=== PATIENT | male | born 1995 | race Caucasian/White ===

== ENCOUNTER 2023-11-29 19:35 | Emergency (ER) | payer MEDICAID, OTHER ==
[~2023-11-29] VITALS: Ht 177.8 cm; Wt 81.0 kg
[2023-11-29 19:42] VITALS: O2SAT 100
[2023-11-29 20:20] LABS: BASOPHILS % 0.7 % (0.0-2.0); EOSINOPHILS % 0.6 % (0.0-5.0); HEMATOCRIT. 40.7 % (42.0-52.0); HEMOGLOBIN. 13.9 g/dL (14.0-18.0); LYMPHOCYTES % 10.7 % (20.0-50.0); MEAN CORPUSCULAR HEMOGLOBIN 31.8 pg (28.0-32.0); MEAN CORPUSCULAR VOLUME 93.3 fL (80.0-94.0); MEAN PLATELET VOLUME 8.2 fl (7.4-10.4); MONOCYTES % 6.1 % (2.0-8.0); NEUTROPHILS % 81.9 % (40.0-76.0); PLATELET 254 x1000/uL (130-400); RED BLOOD CELL COUNT 4.37 mill/uL (4.7-6.1)
[2023-11-29 20:29] LABS: CARBON DIOXIDE 29 mEq/L (21-32); CHLORIDE 108 mEq/L (98-107); POTASSIUM 3.7 mEq/L (3.5-5.1); SODIUM 139 mEq/L (136-145)
[2023-11-29 20:30] LABS: CALCIUM 9.9 mg/dL (8.7-10.4)
[2023-11-29 20:35] LABS: CREATININE 1.1 mg/dL (0.6-1.3); GLUCOSE 89 mg/dL (70-105); UREA NITROGEN BLOOD 13 mg/dL (9-23)
[2023-11-29 20:37] LABS: ACETAMINOPHEN < 2 ug/mL (10-30); ETHANOL BLOOD < 10 mg/dL (<10)
[2023-11-29] MEDS: OLANZAPINE 10 MG/VIAL IM ONE (21:53)
[2023-11-30 11:09] LABS: CLARITY URINE CLEAR (CLEAR); COLOR URINE YELLOW (YELLOW); GLUCOSE URINE NEGATIVE (NEGATIVE); KETONES URINE NEGATIVE (NEGATIVE); LEUKOCYTE ESTERASE URINE NEGATIVE (NEGATIVE); NITRITE URINE NEGATIVE (NEGATIVE); OCCULT BLOOD URINE NEGATIVE (NEGATIVE); PROTEIN URINE NEGATIVE (NEGATIVE); SPECIFIC GRAVITY URINE 1.025 (1.005-1.030)
[2023-11-30 11:26] LABS: *AMPHETAMINES SCREEN URINE NEGATIVE (NEGATIVE); *BARBITURATES SCREEN URINE NEGATIVE (NEGATIVE); *BENZODIAZEPINES SCREEN URINE NEGATIVE (NEGATIVE); *COCAINE SCREEN URINE NEGATIVE (NEGATIVE); ECSTASY MDMA SCREEN URINE NEGATIVE (NEGATIVE); METHADONE URINE SCREEN NEGATIVE (NEGATIVE); OPIATES URINE SCREEN NEGATIVE (NEGATIVE); PHENCYCLIDINE URINE SCREEN NEGATIVE (NEGATIVE)
[2023-11-30 11:27] LABS: CANNABINOID URINE SCREEN PRESUMPTIVE POSITIVE (NEGATIVE)
[2023-11-30] MEDS: OLANZAPINE 5MG TABLET ODT PO SCH (17:00)
[2023-11-30] MEDS: HALOPERIDOL LACTATE 5MG/ML VIAL IM ONE (18:00)
[2023-11-30 20:01] VITALS: BP 122/78; PULSE 81; RESP 20; TEMP 97.8
== END 2023-11-30 20:15 ==
LOC: ER 19:47
DX: F91.9 Conduct disorder, unspecified (principal); F20.9 Schizophrenia, unspecified; J45.909 Unspecified asthma, uncomplicated; Z20.822 Contact with and (suspected) exposure to COVID-19
CPT/HCPCS: 80048; 80307; 80329; 80320; 85025; 36415; 96372 ×2; 99285; 80305; 81003; 87426; J3490; Z7610 ×3; J1630; G0480

== ENCOUNTER 2024-02-20 10:08 | Emergency (ER) | payer OTHER ==
[~2024-02-20] VITALS: Ht 170.2 cm; Wt 59.0 kg
[2024-02-20 10:13] VITALS: O2SAT 98
[2024-02-20] MEDS ORDERED: SEROQUEL (10:13)
[2024-02-20 11:32] LABS: BASOPHILS % 0.8 % (0.0-2.0); EOSINOPHILS % 0.9 % (0.0-5.0); HEMATOCRIT. 43.2 % (42.0-52.0); HEMOGLOBIN. 14.4 g/dL (14.0-18.0); LYMPHOCYTES % 22.3 % (20.0-50.0); MEAN CORPUSCULAR HEMOGLOBIN 30.2 pg (28.0-32.0); MEAN CORPUSCULAR HGB CONC 33.5 g/dL (31.0-37.0); MEAN CORPUSCULAR VOLUME 90.3 fL (80.0-94.0); MEAN PLATELET VOLUME 8.4 fl (7.4-10.4); MONOCYTES % 3.7 % (2.0-8.0); NEUTROPHILS % 72.3 % (40.0-76.0); PLATELET 240 x1000/uL (130-400); RED BLOOD CELL COUNT 4.78 mill/uL (4.7-6.1); RED CELL DISTRIBUTION WIDTH 13.1 % (11.6-14.6); WHITE BLOOD COUNT 6.2 x1000/uL (4.5-11.0)
[2024-02-20 11:41] LABS: CHLORIDE 102 mEq/L (98-107); POTASSIUM 3.6 mEq/L (3.5-5.1); SODIUM 136 mEq/L (136-145)
[2024-02-20 11:42] LABS: CALCIUM 9.5 mg/dL (8.7-10.4); CARBON DIOXIDE 27 mEq/L (21-32)
[2024-02-20 11:47] LABS: CREATININE 1.1 mg/dL (0.6-1.3); GLUCOSE 140 mg/dL (70-105); UREA NITROGEN BLOOD 9 mg/dL (9-23)
[2024-02-20 11:49] LABS: ACETAMINOPHEN < 2 ug/mL (10-30)
[2024-02-20 11:55] LABS: ETHANOL BLOOD < 10 mg/dL (<10)
[2024-02-20 21:57] LABS: CLARITY URINE CLEAR (CLEAR); COLOR URINE YELLOW (YELLOW); GLUCOSE URINE NEGATIVE (NEGATIVE); KETONES URINE NEGATIVE (NEGATIVE); LEUKOCYTE ESTERASE URINE NEGATIVE (NEGATIVE); NITRITE URINE NEGATIVE (NEGATIVE); OCCULT BLOOD URINE NEGATIVE (NEGATIVE); PH URINE 6.5 (4.5-8.0); PROTEIN URINE NEGATIVE (NEGATIVE); SPECIFIC GRAVITY URINE 1.019 (1.005-1.030)
[2024-02-20 22:29] LABS: *AMPHETAMINES SCREEN URINE NEGATIVE (NEGATIVE)
[2024-02-20 22:30] LABS: *BARBITURATES SCREEN URINE NEGATIVE (NEGATIVE); *BENZODIAZEPINES SCREEN URINE NEGATIVE (NEGATIVE); *COCAINE SCREEN URINE NEGATIVE (NEGATIVE); METHADONE URINE SCREEN NEGATIVE (NEGATIVE); OPIATES URINE SCREEN NEGATIVE (NEGATIVE)
[2024-02-20 22:31] LABS: CANNABINOID URINE SCREEN NEGATIVE (NEGATIVE); ECSTASY MDMA SCREEN URINE NEGATIVE (NEGATIVE); PHENCYCLIDINE URINE SCREEN NEGATIVE (NEGATIVE)
[2024-02-21 13:53] VITALS: BP 117/63; PULSE 69; RESP 16; TEMP 98.3
== END 2024-02-21 13:01 ==
LOC: ER 10:08
DX: R45.851 Suicidal ideations (principal); J45.909 Unspecified asthma, uncomplicated; F20.9 Schizophrenia, unspecified; Z20.822 Contact with and (suspected) exposure to COVID-19
CPT/HCPCS: 80305; 80048; 81003; 80307; 80329; 80320; 85025; 36415; 99285; 87426; Z7610; G0480

== ENCOUNTER 2024-05-28 17:16 | Emergency (ER) | payer OTHER ==
[~2024-05-28] VITALS: Ht 175.3 cm; Wt 77.0 kg
[~2024-05-28 17:16] MED LIST: SEROQUEL
[2024-05-28 17:25] VITALS: O2SAT 99
[2024-05-28 18:13] LABS: BASOPHILS % 0.6 % (0.0-2.0); EOSINOPHILS % 1.4 % (0.0-5.0); HEMATOCRIT. 41.6 % (42.0-52.0); HEMOGLOBIN. 14.4 g/dL (14.0-18.0); MEAN CORPUSCULAR HEMOGLOBIN 31.3 pg (28.0-32.0); MEAN CORPUSCULAR HGB CONC 34.5 g/dL (31.0-37.0); MEAN CORPUSCULAR VOLUME 90.7 fL (80.0-94.0); MEAN PLATELET VOLUME 8.2 fl (7.4-10.4); MONOCYTES % 7.4 % (2.0-8.0); NEUTROPHILS % 63.6 % (40.0-76.0); PLATELET 214 x1000/uL (130-400); RED BLOOD CELL COUNT 4.59 mill/uL (4.7-6.1); RED CELL DISTRIBUTION WIDTH 13.3 % (11.6-14.6); WHITE BLOOD COUNT 7.8 x1000/uL (4.5-11.0)
[2024-05-28 18:16] LABS: CHLORIDE 104 mEq/L (98-107); POTASSIUM 3.7 mEq/L (3.5-5.1); SODIUM 140 mEq/L (136-145)
[2024-05-28 18:17] LABS: CALCIUM 9.2 mg/dL (8.7-10.4); CARBON DIOXIDE 29 mEq/L (21-32)
[2024-05-28 18:19] LABS: CLARITY URINE CLEAR (CLEAR); COLOR URINE YELLOW (YELLOW); GLUCOSE URINE NEGATIVE (NEGATIVE); KETONES URINE NEGATIVE (NEGATIVE); LEUKOCYTE ESTERASE URINE 1+ (NEGATIVE); NITRITE URINE NEGATIVE (NEGATIVE); OCCULT BLOOD URINE NEGATIVE (NEGATIVE); PROTEIN URINE NEGATIVE (NEGATIVE); SPECIFIC GRAVITY URINE 1.017 (1.005-1.030)
[2024-05-28 18:22] LABS: CREATININE 0.9 mg/dL (0.6-1.3); GLUCOSE 89 mg/dL (70-105); UREA NITROGEN BLOOD 6 mg/dL (9-23)
[2024-05-28] MEDS: OLANZAPINE 5MG TABLET ODT PO ONE (18:23)
[2024-05-28 18:24] LABS: ACETAMINOPHEN < 2 ug/mL (10-30)
[2024-05-28 18:26] LABS: *AMPHETAMINES SCREEN URINE PRESUMPTIVE POSITIVE (NEGATIVE); *BARBITURATES SCREEN URINE NEGATIVE (NEGATIVE); *BENZODIAZEPINES SCREEN URINE NEGATIVE (NEGATIVE); *COCAINE SCREEN URINE NEGATIVE (NEGATIVE); CANNABINOID URINE SCREEN PRESUMPTIVE POSITIVE (NEGATIVE); ECSTASY MDMA SCREEN URINE NEGATIVE (NEGATIVE); METHADONE URINE SCREEN NEGATIVE (NEGATIVE); OPIATES URINE SCREEN NEGATIVE (NEGATIVE); PHENCYCLIDINE URINE SCREEN NEGATIVE (NEGATIVE)
[2024-05-28 18:48] LABS: BACTERIA URINE 1+; RBC URINE 0-2 /hpf (0-2); SQUAMOUS EPITHELIAL CELL URINE FEW /lpf (RARE/1+)
[2024-05-28 18:49] LABS: MUCUS URINE 1+ /lpf (NONE/TRACE)
[2024-05-28 18:57] LABS: ETHANOL BLOOD < 10 mg/dL (<10)
[2024-05-29 08:00] VITALS: BP 102/68; PULSE 82; RESP 16; TEMP 36.61404; O2SAT 99
== END 2024-05-29 10:17 | disposition home or self-care (01) ==
LOC: ER 17:16
DX: F20.9 Schizophrenia, unspecified (principal); R45.851 Suicidal ideations
CPT/HCPCS: 36415; 80048; 80305; 80307; 80320; 80329; 81003; 85025; 99285; G0480